=== PATIENT | male | born 1980 | race Caucasian/White ===

== ENCOUNTER 2016-11-09 22:42 | Emergency (ER) | payer MEDICAID ==
[~2016-11-09] VITALS: Ht 167.6 cm; Wt 68.0 kg
[2016-11-10] MEDS ORDERED: METOCLOPRAMIDE HCL 10MG/2ML VIAL IV ONE (01:00)
[2016-11-10] MEDS ORDERED: KETOROLAC 30MG/ML VIAL IV ONE (01:00)
[2016-11-10] MEDS ORDERED: SODIUM CHLORIDE 0.9% 1,000 ML IV ONE (01:00)
[2016-11-10] MEDS ORDERED: ONDANSETRON 4MG ODT PO ONE (01:30)
[2016-11-10] MEDS ORDERED: MORPHINE SULFATE 4 MG/ML CPJ (NOT FOR IM USE) IV ONE (01:30)
[2016-11-10 04:30] VITALS: BP 93/45
== END 2016-11-10 04:50 | disposition home or self-care (01) ==
LOC: ER 11-10 00:55
DX: G43.909 Migraine, unspecified, not intractable, without status migrainosus (principal); M54.2 Cervicalgia; M54.9 Dorsalgia, unspecified; Z72.0 Tobacco use; Z88.0 Allergy status to penicillin
CPT/HCPCS: 96361; 96374; 96375; 99284; J1885; J2270; J2765; J7030; Q0162; Z7610

== ENCOUNTER 2017-02-19 11:35 | Emergency (ER) | payer MEDICAID ==
[~2017-02-19] VITALS: Ht 165.1 cm; Wt 61.5 kg
[2017-02-19] MEDS ORDERED: IBUPROFEN 800MG TABLET PO ONE (12:45)
[2017-02-19] MEDS ORDERED: MORPHINE SULFATE 10 MG/ML CPJ IM ONE (13:30)
[2017-02-19 13:48] VITALS: BP 102/81
== END 2017-02-19 14:22 | disposition home or self-care (01) ==
LOC: ER 12:12
DX: S83.91XA Sprain of unspecified site of right knee, initial encounter (principal); Z88.0 Allergy status to penicillin; X58.XXXA Exposure to other specified factors, initial encounter; Y93.89 Activity, other specified; Y92.89 Other specified places as the place of occurrence of the external cause; Y99.0 Civilian activity done for income or pay
CPT/HCPCS: 73564; 96372; 99284; J2270; L1830

== ENCOUNTER 2017-03-01 01:28 | Emergency (ER) | payer MEDICAID ==
[~2017-03-01] VITALS: Ht 165.1 cm; Wt 69.0 kg
[2017-03-01] MEDS ORDERED: IBUPROFEN 600MG TABLET PO ONE (05:30)
[2017-03-01] MEDS ORDERED: ACETAMINOPHEN WITH CODEINE 300/30MG TABLET PO ONE (05:30)
[2017-03-01 05:32] VITALS: BP 117/90
== END 2017-03-01 05:32 | disposition home or self-care (01) ==
LOC: ER 01:28
DX: A63.0 Anogenital (venereal) warts (principal); F17.210 Nicotine dependence, cigarettes, uncomplicated; Z88.0 Allergy status to penicillin; Z98.890 Other specified postprocedural states
CPT/HCPCS: 99283

== ENCOUNTER 2017-04-26 13:08 | Emergency (ER) | payer MEDICAID ==
[~2017-04-26] VITALS: Ht 165.1 cm; Wt 68.0 kg
[2017-04-26] MEDS ORDERED: ACETAMINOPHEN 500MG TABLET PO ONE (17:15)
[2017-04-26] MEDS ORDERED: LORAZEPAM 1MG TABLET PO ONE (18:00)
[2017-04-26] MEDS ORDERED: KETOROLAC 60MG/2ML VIAL IM ONE (18:45)
[2017-04-26 19:08] VITALS: BP 121/78
[2017-04-26] MEDS ORDERED: LORAZEPAM 0.5MG TABLET PO ONE (19:15)
== END 2017-04-26 19:09 | disposition home or self-care (01) ==
LOC: ER 13:55
DX: F43.22 Adjustment disorder with anxiety (principal); F17.200 Nicotine dependence, unspecified, uncomplicated; F43.10 Post-traumatic stress disorder, unspecified; Z88.0 Allergy status to penicillin
CPT/HCPCS: 71045; 93005; 96372; 99284; J1885; Z7610

== ENCOUNTER 2017-06-04 19:19 | Emergency (ER) | payer MEDICAID ==
[~2017-06-04] VITALS: Ht 165.1 cm; Wt 69.0 kg
[2017-06-05] MEDS ORDERED: KETOROLAC 30MG/ML VIAL IV STA (00:16)
[2017-06-05] MEDS ORDERED: SODIUM CHLORIDE 0.9% 1,000 ML IV ONE (00:16)
[2017-06-05] MEDS ORDERED: METOCLOPRAMIDE HCL 10MG/2ML VIAL IV ONE (00:30)
[2017-06-05 00:39] LABS: BASOPHILS % 0.4 % (0.0-2.0); EOSINOPHILS % 7.5 % (0.0-5.0); HEMATOCRIT. 44.7 % (42.0-52.0); HEMOGLOBIN. 14.8 g/dL (14.0-18.0); LYMPHOCYTES % 29.8 % (20.0-50.0); MEAN CORPUSCULAR HEMOGLOBIN 29.4 pg (28.0-32.0); MEAN CORPUSCULAR VOLUME 88.8 fL (80.0-94.0); MEAN PLATELET VOLUME 7.7 fl (7.4-10.4); MONOCYTES % 12.4 % (2.0-8.0); NEUTROPHILS % 49.9 % (40.0-76.0); PLATELET 264 x1000/uL (130-400); RED BLOOD CELL COUNT 5.03 mill/uL (4.7-6.1); RED CELL DISTRIBUTION WIDTH 13.3 % (11.6-14.6)
[2017-06-05 00:45] LABS: CHLORIDE 103 mEq/L (98-107)
[2017-06-05 00:48] LABS: PROTHROMBIN TIME 10.6 sec (9.4-11.6)
[2017-06-05 00:51] LABS: ETHANOL BLOOD < 10 mg/dL
[2017-06-05 01:49] LABS: CLARITY URINE CLOUDY (CLEAR); COLOR URINE YELLOW (YELLOW); KETONES URINE NEGATIVE (NEGATIVE); LEUKOCYTE ESTERASE URINE 2+ (NEGATIVE); NITRITE URINE NEGATIVE (NEGATIVE); OCCULT BLOOD URINE NEGATIVE (NEGATIVE); PH URINE 6.5 (4.5-8.0); PROTEIN URINE NEGATIVE (NEGATIVE); SPECIFIC GRAVITY URINE 1.025 (1.005-1.030); UROBILINOGEN URINE 0.2 E.U./dL (0.2-1.0)
[2017-06-05 02:18] LABS: *AMPHETAMINES SCREEN URINE NEGATIVE (NEGATIVE); *BARBITURATES SCREEN URINE NEGATIVE (NEGATIVE); *BENZODIAZEPINES SCREEN URINE NEGATIVE (NEGATIVE); *COCAINE SCREEN URINE NEGATIVE (NEGATIVE); CANNABINOID URINE SCREEN NEGATIVE (NEGATIVE); METHADONE URINE SCREEN NEGATIVE (NEGATIVE); OPIATES URINE SCREEN NEGATIVE (NEGATIVE); PHENCYCLIDINE URINE SCREEN NEGATIVE (NEGATIVE)
[2017-06-05 03:38] VITALS: BP 100/58
[2017-06-05] MEDS ORDERED: KETOROLAC 15MG/ML VIAL IM ONE (04:30)
== END 2017-06-05 04:45 | disposition home or self-care (01) ==
LOC: ER 21:26
DX: R51 Headache (principal); N39.0 Urinary tract infection, site not specified; R11.0 Nausea; F17.200 Nicotine dependence, unspecified, uncomplicated; Z88.0 Allergy status to penicillin; Z90.10 Acquired absence of unspecified breast and nipple; Z98.890 Other specified postprocedural states
CPT/HCPCS: 36415; 70450; 80053; 80305; 81003; 83605; 83690; 85025; 85610; 96361; 96374; 96375; 99285; G0482; J1885; J2765; J7030; Z7610